=== PATIENT | male | born 1940 | race Caucasian/White ===

== ENCOUNTER 2017-07-05 06:13 | Day surgery (SDC) | payer OTHER ==
[2017-07-05] MEDS ORDERED: DIAZEPAM 5 MG TAB PO ONE (06:16)
[2017-07-05] MEDS ORDERED: FAMOTIDINE 20 MG TAB PO ONE (06:16)
[2017-07-05] MEDS ORDERED: ASPIRIN EC 325 MG TAB PO ONE (06:16)
[2017-07-05] MEDS ORDERED: NS 1,000 ML IV ONE (06:16)
[2017-07-05] MEDS ORDERED: diphenhydrAMINE 25 MG CAP PO ONE (06:16)
--- NOTE | 2017-07-05 06:34 | CPEKG ---
Heart Rate: 65 RR Interval: 923 P-R Interval: 192 QRSD Interval: 90 QT Interval: 432 QTC Interval: 450 P Brave: 55 QRS Brave: -60 T Wave Brave: 41 EKG Severity - ABNORMAL ECG - EKG Impression: SINUS BRADYCARDIA EKG Impression: LEFT ANTERIOR FASCICULAR BLOCK EKG Impression: No significant change from October 20, 2013 Electronically Signed By: Jarred Laurent 05-Jul-2017 07:04:15
--- NOTE | 2017-07-05 06:44 | PDHPUP ---
History & Physical Update H&P update statement: This history and physical update is based on an assessment of the patient which was completed after admission or registration (within 24 hours), but prior to the surgery/procedure. H&P update: H&P reviewed & patient examined, no change in patient's condition since H&P completed
--- NOTE | 2017-07-05 06:44 | PDPROPOC ---
Sedation Plan of Care Sedation Plan of Care: mental status noted, patient educated of risks, benefits , alternatives, patient can tolerate sedation ASA Classification: ASA 2 Planned drugs: fentanyl, midazolam Mallampati Score: Class 2 Mallampati Reference Image: Patient passed 3-3-2 rule?: Yes
[2017-07-05 06:49] LABS: PLATELET COUNT 190 10^3/uL (150-400)
[2017-07-05 06:58] LABS: INR 0.93 (0.83-1.16); PROTIME(PATIENT) 12.7 SEC (12.0-15.0)
[2017-07-05] MEDS ORDERED: LIDOCAINE 1% 300 MG/30 ML SDV ONE (07:11)
[2017-07-05] MEDS ORDERED: IOPAMIDOL (ISOVUE-370) 150 ML BTL IV ONE (07:12)
[2017-07-05] MEDS ORDERED: fentaNYL 100 MCG/2 ML INJ ONE (07:12)
[2017-07-05] MEDS ORDERED: MIDAZOLAM 2 MG/2 ML VIAL ONE (07:12)
[2017-07-05] MEDS ORDERED: CLOPIDOGREL BISULFATE 75 MG TAB PO ONE (07:15)
[2017-07-05] MEDS ORDERED: BIVALIRUDIN 250 MG/5 ML VIAL IV ONE (07:59)
[2017-07-05] MEDS ORDERED: NITROGLYCERIN 1,500 MCG/15 ML VIAL MISC ONE (08:03)
[2017-07-05] MEDS ORDERED: ATROPINE SULFATE 1 MG/10 ML SYR IVP PRN (08:39)
[2017-07-05] MEDS ORDERED: OXYCODONE/APAP 5/325 TAB PO PRN (08:39)
[2017-07-05] MEDS ORDERED: NITROGLYCERIN 0.4 MG BTL SL PRN (08:39)
[2017-07-05] MEDS ORDERED: ONDANSETRON 4 MG/2 ML VIAL IVP PRN (08:39)
[2017-07-05] MEDS ORDERED: HYDROCODONE/APAP 5/325 TAB PO PRN (08:39)
--- NOTE | 2017-07-05 09:13 | CPIP ---
[f rep st] INVASIVE CARDIAC PROCEDURE DATE OF PROCEDURE: 07/05/2017 INDICATION FOR PROCEDURE: Positive stress test, chest pain. PROCEDURE: 1. Nonselective right groin sheathogram. 2. Bilateral selective coronary angiography. 3. Left heart catheterization. 4. Left ventriculogram. 5. IFR of proximal right coronary artery. HISTORY: Briefly, this is a 77-year-old male with history of worsening anginal-like symptoms as an o utpatient, which were relieved by nitroglycerin. The patient had a stress test, which showed positiv e ischemia in the inferolateral region with positive EKG changes. Given these findings, patient cons ented for a left heart catheterization. DESCRIPTION OF PROCEDURE: After informed consented, the patient was brought to [facility] where th e right groin was prepped and draped in a sterile fashion. Using lidocaine, a short 6-Monegasque sheath was introduced into the right common femoral artery, verified angiographically. Through this 6-Frenc h sheath, a JL4 catheter was advanced to the left coronary artery. Images of the left coronary arter y revealed normal left main. Left circumflex artery gave off a tiny marginal 1 artery proximally, fo llowed by a larger LPLS. This is a codominant circulation. The circumflex terminated into a bifurca ting marginal 2 and 3 artery. There were some aneurysmal changes prior to the bifurcation, but no hi gh-grade stenosis. The LAD was a long vessel, which wrapped around the apex. The LAD proximally had mild plaque disease. It gave off a tiny marginal artery proximally and a medium size 1 in the midbo dy. Distally, the artery tapered to a very thin vessel but did not appear to have any high-grade obs truction or disease. After these images were obtained, the JL4 catheter was removed. The JR4 cathet er was then advanced to the right coronary artery. Images of the right coronary artery revealed norm al ostial RCA, prox RCA had tubular 40% to 50% disease followed by a segment of normal vessel going t o the RPDA, which was healthy and free of disease. After these images were obtained, the JR4 cathete r was removed. The pigtail catheter was advanced to the left ventricle. LVEDP was 15 mmHg. Left ve ntriculogram in the CODY projection showed an EF of 65% with no wall motion abnormalities. There was no pullback gradient between the LV and the aorta. Pigtail catheter was removed over the 0.035 wire. INTERVENTION REPORT: At this time, given the patient's symptoms as well as positive stress test and disease in the proximal RCA, we decided to interrogate this vessel further with IFR. The patient had already been administered 600 Plavix p.o. prior to the case and started on Angiomax bolus and drip. A JR4 6-Monegasque guide was advanced to the right coronary artery. An IFR wire was then placed into th e RPDA, and through IFR protocol after appropriate zeroing, IFR measurements were taken, which reveal ed a measurement of 1.0 and 0.99. After 200 mcg nitroglycerin, the IFR stayed stable at 0.99 and 0.9 8, indicating noncritical stenosis of the proximal RCA. The wire was then removed. Angiographic eliezer ges were then obtained, which once again redemonstrated the 40% to 50% prox RCA disease. The cathete r was removed over the 0.035 wire. The right groin was closed using 6-Monegasque Angio-Seal. The patien t tolerated the procedure well. There were no complications. IMPRESSION: 1. 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 2. Mild disease of the left anterior descending and left circumflex artery with no high-grade stenos is. 3. Normal ejection fraction. PLAN: The patient will be treated with aggressive medical therapy. Potentially microvascular diseas e versus coronary spasm could be explaining the patient's underlying outpatient symptoms and test fin dings. We will start the patient on Imdur 30 mg p.o. daily and progress accordingly. /[id number]/MODL
== END 2017-07-05 12:13 | disposition home or self-care (01) ==
LOC: FCATH 06:13
PROVIDERS: ATTEND Internal Medicine Cardiovascular Disease
PROC: 4A023N7 Measurement of Cardiac Sampling and Pressure, Left Heart, Percutaneous Approach (ICD-10-PCS; principal; 2017-07-05)
PROC: B2111ZZ Fluoroscopy of Multiple Coronary Arteries using Low Osmolar Contrast (ICD-10-PCS; principal; 2017-07-05)
PROC: B2151ZZ Fluoroscopy of Left Heart using Low Osmolar Contrast (ICD-10-PCS; principal; 2017-07-05)
DX: I25.10 Atherosclerotic heart disease of native coronary artery without angina pectoris (principal)
CPT/HCPCS: 93005; 93458; 93571; C1769; C1887; C1760; J0583; J1644; J2250; J3010; Q9967